=== PATIENT | male | born 1980 ===

== ENCOUNTER 2019-06-20 11:23 | Inpatient (IN) | payer OTHER ==
[~2019-06-20] VITALS: Ht 167.6 cm; Wt 70.1 kg
[2019-06-20] MEDS ORDERED: RISP.5 PO (11:36)
[2019-06-20 12:15] LABS: BASOPHILS % (AUTO) 0.7 % (0.0-2.0); HEMATOCRIT 35.1 % (41-53); HEMOGLOBIN 11.4 g/dL (13.5-17.5); LYMPHOCYTES # (AUTO) 1.6 K/uL (1.0-4.8); LYMPHOCYTES % (AUTO) 28.6 % (22.0-44.0); MEAN CORPUSCULAR HEMOGLOBIN 20.9 pg (26.0-34.0); MEAN CORPUSCULAR HGB CONC 32.6 G/dL (31.0-37.0); MEAN CORPUSCULAR VOLUME 64 fL (80-100); MONOCYTES # (AUTO) 0.4 K/uL (0.1-1.0); MONOCYTES % (AUTO) 7.3 % (2.0-9.0); NEUTROPHILS # (AUTO) 3.5 K/uL (1.8-7.7); NEUTROPHILS % (AUTO) 61.4 % (40.0-70.0); PLATELET COUNT (AUTO) 269 K/uL (150-450); RED BLOOD CELL COUNT(AUTO) 5.45 MIL/uL (4.50-5.90); RED CELL DISTRIBUTION WIDTH 15.6 % (11.5-14.5)
[2019-06-20 12:26] LABS: ANION GAP 6 mmol/L (8-16); CALCIUM, TOTAL 9.2 mg/dL (8.8-10.5); CARBON DIOXIDE 29 mmol/L (22-29); CHLORIDE 105 mmol/L (98-107); CREATININE 0.93 mg/dL (0.60-1.30); GLOMERULAR FILTR. RATE CALC > 60 mL/min (>60); GLUCOSE,RANDOM 116 mg/dL (70-110); POTASSIUM 4.1 mmol/L (3.5-5.1); SODIUM SERUM 140 mmol/L (136-145); UREA NITROGEN, BLOOD 14 mg/dL (7-18)
[2019-06-20 12:32] LABS: ALANINE AMINOTRANSFERASE 62 U/L (12-78); ALBUMIN 3.2 g/dL (3.4-5.0); ALKALINE PHOSPHATASE 74 U/L (46-116); ASPARTATE AMINOTRANSFERASE 48 U/L (15-37); BILIRUBIN,TOTAL 0.6 mg/dL (0.1-1.0)
[2019-06-20] MEDS ORDERED: CefTRIAXone 1 GM/DEXTROSE 50 ML IV ONE (13:00)
[2019-06-20] MEDS ORDERED: AZITHROMYCIN 500 MG/NS 250 ML IV ONE (13:00)
[2019-06-20 15:40] VITALS: BP 98/56
[2019-06-20] MEDS ORDERED: INFLUENZA VIRUS VACCINE QVS 2019-20 (3YR+)/PF 60 MCG/0.5 ML SYRINGE IM ONE (16:45)
[2019-06-20] MEDS ORDERED: PNEUMOCOCCAL VACCINE POLYVALENT 0.5 ML VIAL [PPSV23] IM ONE (16:45)
[2019-06-20] MEDS ORDERED: IOVERSOL 320 MG/ML 100 ML VIAL ONE (17:04)
[2019-06-20] MEDS ORDERED: SODIUM CHLORIDE 0.9% 100 ML ONE (17:04)
[2019-06-20 20:26] VITALS: BP 106/52
[2019-06-20] MEDS: RisperiDONE 2 MG TABLET PO SCH (20:29)
[2019-06-20] MEDS ORDERED: RisperiDONE 2 MG TABLET PO SCH (21:00)
[2019-06-21 04:38] VITALS: BP 108/53
[2019-06-21 08:06] LABS: HIV 1-2 SCREEN 4TH GEN W/RFLX Non Reactive (Non Reactive)
[2019-06-21 08:22] VITALS: BP 91/70
[2019-06-21 15:20] VITALS: BP 100/60
[2019-06-21 20:15] VITALS: BP 109/68
[2019-06-21] MEDS: RisperiDONE 2 MG TABLET PO SCH ×2 (20:24→21:00)
[2019-06-21] MEDS: ACETAMINOPHEN 325 MG TABLET PO PRN (20:24)
[2019-06-21] MEDS: MAGNESIUM HYDROXIDE SUSPENSION 30 ML UDCUP PO PRN (20:24)
[2019-06-22 04:41] VITALS: BP 108/54
[2019-06-22 07:20] VITALS: BP 112/78
[2019-06-22] MEDS: RisperiDONE 2 MG TABLET PO SCH ×3 (08:26→21:00)
[2019-06-22 15:10] VITALS: BP 119/79
[2019-06-22 20:45] VITALS: BP 131/74
[2019-06-22] MEDS: MAGNESIUM HYDROXIDE SUSPENSION 30 ML UDCUP PO PRN (20:47)
[2019-06-22] MEDS: ACETAMINOPHEN 325 MG TABLET PO PRN (20:47)
[2019-06-22 22:25] LABS: QUANTIFERON+,Mitogen Value >10.00 IU/mL; QUANTIFERON+,TB1 Antigen Value >10.00 IU/mL; QUANTIFERON, TB GOLD PLUS Positive (Negative)
[2019-06-23 07:58] VITALS: BP 109/68
[2019-06-23] MEDS: RisperiDONE 2 MG TABLET PO SCH ×2 (08:08→21:06)
[2019-06-23 15:51] VITALS: BP 133/86
[2019-06-23 21:02] VITALS: BP 115/79
[2019-06-24 05:22] VITALS: BP 118/66
[2019-06-24 07:30] VITALS: BP 90/54
[2019-06-24 09:38] LABS: BASOPHILS % (AUTO) 0.8 % (0.0-2.0); EOSINOPHILS % (AUTO) 3.7 % (1.0-6.0); HEMOGLOBIN 11.6 g/dL (13.5-17.5); LYMPHOCYTES % (AUTO) 34.8 % (22.0-44.0); MEAN CORPUSCULAR HEMOGLOBIN 20.4 pg (26.0-34.0); MEAN CORPUSCULAR HGB CONC 32.2 G/dL (31.0-37.0); MEAN CORPUSCULAR VOLUME 64 fL (80-100); MONOCYTES # (AUTO) 0.5 K/uL (0.1-1.0); MONOCYTES % (AUTO) 8.5 % (2.0-9.0); NEUTROPHILS # (AUTO) 3.1 K/uL (1.8-7.7); NEUTROPHILS % (AUTO) 52.2 % (40.0-70.0); PLATELET COUNT (AUTO) 281 K/uL (150-450); RED BLOOD CELL COUNT(AUTO) 5.67 MIL/uL (4.50-5.90); RED CELL DISTRIBUTION WIDTH 15.7 % (11.5-14.5)
[2019-06-24 09:46] LABS: ANION GAP 7 mmol/L (8-16); CALCIUM, TOTAL 9.1 mg/dL (8.8-10.5); CARBON DIOXIDE 27 mmol/L (22-29); CHLORIDE 104 mmol/L (98-107); CREATININE 0.94 mg/dL (0.60-1.30); GLOMERULAR FILTR. RATE CALC > 60 mL/min (>60); GLUCOSE,RANDOM 95 mg/dL (70-110); SODIUM SERUM 138 mmol/L (136-145); UREA NITROGEN, BLOOD 12 mg/dL (7-18)
[2019-06-24] MEDS: RisperiDONE 2 MG TABLET PO SCH ×2 (09:57→23:09)
[2019-06-24 15:53] VITALS: BP 124/68
[2019-06-24 18:29] LABS: PROTHROMBIN TIME 10.2 SEC (9.4-11.6)
[2019-06-24 20:07] VITALS: BP 112/74
[2019-06-25] VITALS (8 sets, daily range): BP systolic 96–121; BP diastolic 58–72
[2019-06-25 08:16] LABS: BASOPHILS % (AUTO) 0.5 % (0.0-2.0); EOSINOPHILS % (AUTO) 3.7 % (1.0-6.0); HEMATOCRIT 36.9 % (41-53); LYMPHOCYTES # (AUTO) 2.3 K/uL (1.0-4.8); LYMPHOCYTES % (AUTO) 39.5 % (22.0-44.0); MEAN CORPUSCULAR HEMOGLOBIN 20.6 pg (26.0-34.0); MEAN CORPUSCULAR HGB CONC 32.5 G/dL (31.0-37.0); MEAN CORPUSCULAR VOLUME 63 fL (80-100); MONOCYTES # (AUTO) 0.5 K/uL (0.1-1.0); MONOCYTES % (AUTO) 8.9 % (2.0-9.0); NEUTROPHILS # (AUTO) 2.7 K/uL (1.8-7.7); NEUTROPHILS % (AUTO) 47.4 % (40.0-70.0); PLATELET COUNT (AUTO) 283 K/uL (150-450); RED BLOOD CELL COUNT(AUTO) 5.82 MIL/uL (4.50-5.90); RED CELL DISTRIBUTION WIDTH 15.6 % (11.5-14.5)
[2019-06-25] MEDS ORDERED: FentaNYL CITRATE-PF 100 MCG/2 ML VIAL ONE (09:18)
[2019-06-25] MEDS ORDERED: NALOXONE HCL 0.4 MG/ML VIAL ONE (09:19)
[2019-06-25] MEDS ORDERED: MIDAZOLAM HCL 2 MG/2 ML VIAL ONE (09:19)
[2019-06-25] MEDS ORDERED: FLUMAZENIL 0.1 MG/ML 5 ML VIAL IVP ONE (09:19)
[2019-06-25] MEDS ORDERED: SODIUM CHLORIDE 0.9% 250 ML IV ONE (10:00)
[2019-06-25] MEDS ORDERED: MIDAZOLAM HCL 2 MG/2 ML VIAL IVP ONE (10:30)
[2019-06-25] MEDS ORDERED: FentaNYL CITRATE-PF 100 MCG/2 ML VIAL IVP ONE (10:32)
[2019-06-25] MEDS: RisperiDONE 2 MG TABLET PO SCH ×2 (15:35→22:24)
[2019-06-25] MEDS: ISONIAZID 300 MG TABLET PO SCH (15:36)
[2019-06-25] MEDS: PYRAZINAMIDE 500 MG TABLET PO SCH (15:36)
[2019-06-25] MEDS: RIFAMPIN 300 MG CAPSULE PO SCH (15:36)
[2019-06-25] MEDS: ETHAMBUTOL HCL 400 MG TABLET PO SCH (15:37)
[2019-06-25] MEDS: PYRIDOXINE HCL 50 MG TABLET PO SCH (15:46)
[2019-06-25] MEDS: ZOLPIDEM TARTRATE 5 MG TABLET PO PRN (22:24)
[2019-06-26 05:00] VITALS: BP 107/70
[2019-06-26 07:30] VITALS: BP 106/67
[2019-06-26 07:44] LABS: BASOPHILS % (AUTO) 0.9 % (0.0-2.0); HEMATOCRIT 35.2 % (41-53); HEMOGLOBIN 11.6 g/dL (13.5-17.5); LYMPHOCYTES # (AUTO) 2.3 K/uL (1.0-4.8); LYMPHOCYTES % (AUTO) 38.5 % (22.0-44.0); MEAN CORPUSCULAR HEMOGLOBIN 20.9 pg (26.0-34.0); MEAN CORPUSCULAR VOLUME 64 fL (80-100); MONOCYTES # (AUTO) 0.5 K/uL (0.1-1.0); MONOCYTES % (AUTO) 8.4 % (2.0-9.0); NEUTROPHILS # (AUTO) 2.9 K/uL (1.8-7.7); NEUTROPHILS % (AUTO) 48.2 % (40.0-70.0); PLATELET COUNT (AUTO) 293 K/uL (150-450); RED BLOOD CELL COUNT(AUTO) 5.55 MIL/uL (4.50-5.90)
[2019-06-26] MEDS: RisperiDONE 2 MG TABLET PO SCH ×2 (09:43→20:20)
[2019-06-26] MEDS: PYRIDOXINE HCL 50 MG TABLET PO SCH (09:43)
[2019-06-26] MEDS: PYRAZINAMIDE 500 MG TABLET PO SCH (09:43)
[2019-06-26] MEDS: ISONIAZID 300 MG TABLET PO SCH (09:44)
[2019-06-26] MEDS: RIFAMPIN 300 MG CAPSULE PO SCH (09:44)
[2019-06-26] MEDS: ETHAMBUTOL HCL 400 MG TABLET PO SCH (09:44)
[2019-06-26 14:12] LABS: U HISTOPLASMA GALACTOMANNAN AG <0.5 (<0.5 ng/mL)
[2019-06-26 15:11] VITALS: BP 102/63
[2019-06-26] MEDS: ZOLPIDEM TARTRATE 5 MG TABLET PO PRN (20:20)
[2019-06-26 20:32] VITALS: BP 123/75
[2019-06-27 05:01] VITALS: BP 99/68
[2019-06-27 08:41] VITALS: BP 128/74
[2019-06-27] MEDS: PYRIDOXINE HCL 50 MG TABLET PO SCH (09:12)
[2019-06-27] MEDS: ISONIAZID 300 MG TABLET PO SCH (09:12)
[2019-06-27] MEDS: RisperiDONE 2 MG TABLET PO SCH ×2 (09:13→21:19)
[2019-06-27] MEDS: RIFAMPIN 300 MG CAPSULE PO SCH (09:13)
[2019-06-27] MEDS: PYRAZINAMIDE 500 MG TABLET PO SCH (09:13)
[2019-06-27] MEDS: ETHAMBUTOL HCL 400 MG TABLET PO SCH (09:14)
[2019-06-27] MEDS: BusPIRone HCL 5 MG TABLET PO SCH ×2 (13:16→21:20)
[2019-06-27 16:41] VITALS: BP 141/71
[2019-06-27 19:15] VITALS: BP 154/85
[2019-06-27] MEDS ORDERED: ALBUTEROL SULFATE 2.5 MG/0.5 ML NEB SOLUTION NEB PRN (21:15)
[2019-06-27] MEDS ORDERED: IPRATROPIUM BROMIDE 0.5 MG/2.5 ML NEB SOLUTION NEB PRN (21:15)
[2019-06-27 21:45] LABS: ABG A-A DIFF O2 10.9 mmHg (10-20.0); ABG BASE EXCESS 3.1 mmol/L (-2.0-3.0); ABG CARBOXYHEMOGLOBIN 0.2 % (0.0-1.5); ABG HCO3 26.7 mmol/L (22.0-26.0); ABG METHEMOGLOBIN 0.2 % (0.0-1.5); ABG OXYGEN CONTENT 16.6 mL/dL (15.0-23.0); ABG OXYGEN SATURATION 95.7 % (95.0-98.0); ABG OXYHEMOGLOBIN 95.3 % (94.0-100.0); ABG PCO2 47 mmHg (35-45); ABG PH 7.395 (7.35-7.450); ABG TOTAL HEMOGLOBIN 12.3 G/dL (12.0-18.0); SOURCE, BLOOD GAS ARTERIAL; TEMPERATURE, FAHRENHEIT, BG 98.5 FAHREN (96.0-98.6)
[2019-06-27 21:47] LABS: SITE, BLOOD GAS RT BRACHIAL
[2019-06-28 05:15] VITALS: BP 103/56
[2019-06-28 07:18] VITALS: BP 111/56
[2019-06-28] MEDS ORDERED: INDOMETHACIN 50 MG CAPSULE PO ONE (07:45)
[2019-06-28 08:43] LABS: BASOPHILS % (AUTO) 0.9 % (0.0-2.0); EOSINOPHILS % (AUTO) 3.2 % (1.0-6.0); HEMATOCRIT 36.9 % (41-53); HEMOGLOBIN 12.1 g/dL (13.5-17.5); LYMPHOCYTES # (AUTO) 2.4 K/uL (1.0-4.8); LYMPHOCYTES % (AUTO) 42.5 % (22.0-44.0); MEAN CORPUSCULAR HEMOGLOBIN 20.6 pg (26.0-34.0); MEAN CORPUSCULAR HGB CONC 32.7 G/dL (31.0-37.0); MEAN CORPUSCULAR VOLUME 63 fL (80-100); MONOCYTES # (AUTO) 0.4 K/uL (0.1-1.0); NEUTROPHILS # (AUTO) 2.6 K/uL (1.8-7.7); NEUTROPHILS % (AUTO) 46.4 % (40.0-70.0); PLATELET COUNT (AUTO) 302 K/uL (150-450); RED BLOOD CELL COUNT(AUTO) 5.84 MIL/uL (4.50-5.90); RED CELL DISTRIBUTION WIDTH 16.1 % (11.5-14.5)
[2019-06-28] MEDS: BusPIRone HCL 5 MG TABLET PO SCH ×2 (08:51→20:05)
[2019-06-28] MEDS: ISONIAZID 300 MG TABLET PO SCH (08:51)
[2019-06-28] MEDS: RisperiDONE 2 MG TABLET PO SCH ×2 (08:51→20:05)
[2019-06-28] MEDS: PYRAZINAMIDE 500 MG TABLET PO SCH (08:51)
[2019-06-28] MEDS: RIFAMPIN 300 MG CAPSULE PO SCH (08:51)
[2019-06-28] MEDS: ETHAMBUTOL HCL 400 MG TABLET PO SCH (08:51)
[2019-06-28] MEDS: PYRIDOXINE HCL 50 MG TABLET PO SCH (08:51)
[2019-06-28] MEDS ORDERED: INDOMETHACIN 25 MG CAPSULE PO SCH (09:00)
[2019-06-28 16:53] VITALS: BP 126/71
[2019-06-28 20:38] VITALS: BP 124/68
[2019-06-28] MEDS: ZOLPIDEM TARTRATE 5 MG TABLET PO PRN (21:05)
[2019-06-28] MEDS ORDERED: LORazepam 2 MG/ML VIAL IM ONE (22:00)
[2019-06-28] MEDS ORDERED: DiphenhydrAMINE HCL 50 MG/ML VIAL IM ONE (22:00)
[2019-06-28] MEDS ORDERED: HALOPERIDOL LACTATE 5 MG/ML VIAL IM ONE (22:00)
[2019-06-28] MEDS ORDERED: DiphenhydrAMINE HCL 50 MG/ML VIAL ONE (22:08)
[2019-06-28] MEDS ORDERED: LORazepam 2 MG/ML VIAL ONE (22:08)
[2019-06-28] MEDS ORDERED: HALOPERIDOL LACTATE 5 MG/ML VIAL ONE (22:08)
[2019-06-29 04:30] VITALS: BP 120/66
[2019-06-29 08:04] VITALS: BP 117/77
[2019-06-29] MEDS: ISONIAZID 300 MG TABLET PO SCH (09:27)
[2019-06-29] MEDS: PYRAZINAMIDE 500 MG TABLET PO SCH (09:27)
[2019-06-29] MEDS: ETHAMBUTOL HCL 400 MG TABLET PO SCH (09:28)
[2019-06-29] MEDS: RIFAMPIN 300 MG CAPSULE PO SCH (09:28)
[2019-06-29] MEDS: RisperiDONE 2 MG TABLET PO SCH ×2 (09:28→20:02)
[2019-06-29] MEDS: BusPIRone HCL 5 MG TABLET PO SCH ×2 (09:28→20:02)
[2019-06-29] MEDS: PYRIDOXINE HCL 50 MG TABLET PO SCH (09:28)
[2019-06-29 15:24] VITALS: BP 107/58
[2019-06-29 19:56] VITALS: BP 121/71
[2019-06-30 05:13] VITALS: BP 93/53
[2019-06-30] MEDS: RIFAMPIN 300 MG CAPSULE PO SCH (08:15)
[2019-06-30] MEDS: PYRAZINAMIDE 500 MG TABLET PO SCH (08:15)
[2019-06-30] MEDS: RisperiDONE 2 MG TABLET PO SCH ×2 (08:16→20:12)
[2019-06-30] MEDS: BusPIRone HCL 5 MG TABLET PO SCH ×2 (08:16→20:12)
[2019-06-30] MEDS: ISONIAZID 300 MG TABLET PO SCH (08:16)
[2019-06-30] MEDS: ETHAMBUTOL HCL 400 MG TABLET PO SCH (08:16)
[2019-06-30] MEDS: PYRIDOXINE HCL 50 MG TABLET PO SCH (08:16)
[2019-06-30 08:48] VITALS: BP 111/73
[2019-06-30 16:00] VITALS: BP 118/71
[2019-06-30] MEDS: DICLOFENAC SODIUM 1% 100 GM GEL [2GM] TP SCH (20:12)
[2019-06-30] MEDS: ZOLPIDEM TARTRATE 5 MG TABLET PO PRN (20:16)
[2019-06-30 20:20] VITALS: BP 123/76
[2019-07-01 05:22] VITALS: BP 116/66
[2019-07-01] MEDS: ETHAMBUTOL HCL 400 MG TABLET PO SCH (08:22)
[2019-07-01] MEDS: ISONIAZID 300 MG TABLET PO SCH (08:22)
[2019-07-01] MEDS: RIFAMPIN 300 MG CAPSULE PO SCH (08:23)
[2019-07-01] MEDS: RisperiDONE 2 MG TABLET PO SCH ×2 (08:23→20:11)
[2019-07-01] MEDS: PYRAZINAMIDE 500 MG TABLET PO SCH (08:23)
[2019-07-01] MEDS: BusPIRone HCL 5 MG TABLET PO SCH ×2 (08:23→20:11)
[2019-07-01] MEDS: PYRIDOXINE HCL 50 MG TABLET PO SCH (08:26)
[2019-07-01] MEDS: DICLOFENAC SODIUM 1% 100 GM GEL [2GM] TP SCH ×5 (08:29→20:19)
[2019-07-01 08:45] VITALS: BP 131/71
[2019-07-01 16:08] VITALS: BP 103/69
[2019-07-01] MEDS: ZOLPIDEM TARTRATE 5 MG TABLET PO PRN (20:11)
[2019-07-01 20:35] VITALS: BP 117/64
[2019-07-02 04:58] VITALS: BP 107/61
[2019-07-02 07:58] LABS: BASOPHILS % (AUTO) 0.7 % (0.0-2.0); EOSINOPHILS % (AUTO) 3.2 % (1.0-6.0); HEMATOCRIT 36.5 % (41-53); HEMOGLOBIN 11.7 g/dL (13.5-17.5); LYMPHOCYTES # (AUTO) 2.3 K/uL (1.0-4.8); LYMPHOCYTES % (AUTO) 45.1 % (22.0-44.0); MEAN CORPUSCULAR HEMOGLOBIN 20.5 pg (26.0-34.0); MEAN CORPUSCULAR HGB CONC 32.1 G/dL (31.0-37.0); MEAN CORPUSCULAR VOLUME 64 fL (80-100); MONOCYTES # (AUTO) 0.4 K/uL (0.1-1.0); MONOCYTES % (AUTO) 7.5 % (2.0-9.0); NEUTROPHILS # (AUTO) 2.2 K/uL (1.8-7.7); NEUTROPHILS % (AUTO) 43.5 % (40.0-70.0); PLATELET COUNT (AUTO) 292 K/uL (150-450); RED BLOOD CELL COUNT(AUTO) 5.73 MIL/uL (4.50-5.90); RED CELL DISTRIBUTION WIDTH 15.6 % (11.5-14.5)
[2019-07-02 08:00] LABS: ALANINE AMINOTRANSFERASE 39 U/L (12-78); ALBUMIN 3.2 g/dL (3.4-5.0); ALKALINE PHOSPHATASE 81 U/L (46-116); ANION GAP 5 mmol/L (8-16); ASPARTATE AMINOTRANSFERASE 32 U/L (15-37); BILIRUBIN,TOTAL 0.4 mg/dL (0.1-1.0); CALCIUM, TOTAL 8.7 mg/dL (8.8-10.5); CARBON DIOXIDE 28 mmol/L (22-29); CHLORIDE 105 mmol/L (98-107); CREATININE 0.85 mg/dL (0.60-1.30); GLOMERULAR FILTR. RATE CALC > 60 mL/min (>60); GLUCOSE,RANDOM 91 mg/dL (70-110); POTASSIUM 3.9 mmol/L (3.5-5.1); SODIUM SERUM 138 mmol/L (136-145); TOTAL PROTEIN, SERUM 8.3 g/dL (6.4-8.2); UREA NITROGEN, BLOOD 13 mg/dL (7-18)
[2019-07-02] MEDS: PYRIDOXINE HCL 50 MG TABLET PO SCH (08:09)
[2019-07-02] MEDS: RIFAMPIN 300 MG CAPSULE PO SCH (08:09)
[2019-07-02] MEDS: ETHAMBUTOL HCL 400 MG TABLET PO SCH (08:09)
[2019-07-02] MEDS: RisperiDONE 2 MG TABLET PO SCH ×2 (08:09→21:31)
[2019-07-02] MEDS: PYRAZINAMIDE 500 MG TABLET PO SCH (08:09)
[2019-07-02] MEDS: BusPIRone HCL 5 MG TABLET PO SCH ×2 (08:10→21:30)
[2019-07-02] MEDS: ISONIAZID 300 MG TABLET PO SCH (08:10)
[2019-07-02 09:02] VITALS: BP 124/83
[2019-07-02] MEDS: DICLOFENAC SODIUM 1% 100 GM GEL [2GM] TP SCH ×3 (13:00→21:00)
[2019-07-02 15:37] VITALS: BP 119/82
[2019-07-02 20:51] VITALS: BP 106/65
[2019-07-02] MEDS: ZOLPIDEM TARTRATE 5 MG TABLET PO PRN (21:33)
[2019-07-03 04:45] VITALS: BP 114/60
[2019-07-03 08:17] VITALS: BP 112/68
[2019-07-03] MEDS: RIFAMPIN 300 MG CAPSULE PO SCH (08:44)
[2019-07-03] MEDS: ETHAMBUTOL HCL 400 MG TABLET PO SCH (08:45)
[2019-07-03] MEDS: ISONIAZID 300 MG TABLET PO SCH (08:45)
[2019-07-03] MEDS: PYRAZINAMIDE 500 MG TABLET PO SCH (08:45)
[2019-07-03] MEDS: RisperiDONE 2 MG TABLET PO SCH ×2 (08:45→21:10)
[2019-07-03] MEDS: BusPIRone HCL 5 MG TABLET PO SCH ×2 (08:45→21:10)
[2019-07-03] MEDS: PYRIDOXINE HCL 50 MG TABLET PO SCH (08:47)
[2019-07-03] MEDS: DICLOFENAC SODIUM 1% 100 GM GEL [2GM] TP SCH ×4 (08:50→21:10)
[2019-07-03 15:52] VITALS: BP 119/71
[2019-07-03 20:26] VITALS: BP 109/65
[2019-07-03] MEDS: ZOLPIDEM TARTRATE 5 MG TABLET PO PRN (21:18)
[2019-07-04 04:36] VITALS: BP 110/69
[2019-07-04 07:45] VITALS: BP 115/58
[2019-07-04] MEDS: PYRAZINAMIDE 500 MG TABLET PO SCH (08:33)
[2019-07-04] MEDS: BusPIRone HCL 5 MG TABLET PO SCH (08:33)
[2019-07-04] MEDS: ISONIAZID 300 MG TABLET PO SCH (08:33)
[2019-07-04] MEDS: RisperiDONE 2 MG TABLET PO SCH ×2 (08:33→21:49)
[2019-07-04] MEDS: PYRIDOXINE HCL 50 MG TABLET PO SCH (08:34)
[2019-07-04] MEDS: RIFAMPIN 300 MG CAPSULE PO SCH (08:34)
[2019-07-04] MEDS: ETHAMBUTOL HCL 400 MG TABLET PO SCH (08:34)
[2019-07-04] MEDS: DICLOFENAC SODIUM 1% 100 GM GEL [2GM] TP SCH ×4 (08:39→21:00)
[2019-07-04 15:27] VITALS: BP 111/72
[2019-07-04 19:00] VITALS: BP 108/60
[2019-07-04] MEDS: BusPIRone HCL 10 MG TABLET PO SCH (21:49)
[2019-07-04] MEDS: ZOLPIDEM TARTRATE 5 MG TABLET PO PRN (21:49)
[2019-07-05 04:16] VITALS: BP 116/63
[2019-07-05 07:30] VITALS: BP 119/60
[2019-07-05] MEDS: PYRIDOXINE HCL 50 MG TABLET PO SCH (08:39)
[2019-07-05] MEDS: RisperiDONE 2 MG TABLET PO SCH ×2 (08:39→21:00)
[2019-07-05] MEDS: ISONIAZID 300 MG TABLET PO SCH (08:40)
[2019-07-05] MEDS: PYRAZINAMIDE 500 MG TABLET PO SCH (08:40)
[2019-07-05] MEDS: RIFAMPIN 300 MG CAPSULE PO SCH (08:40)
[2019-07-05] MEDS: BusPIRone HCL 10 MG TABLET PO SCH ×2 (08:40→22:42)
[2019-07-05] MEDS: DICLOFENAC SODIUM 1% 100 GM GEL [2GM] TP SCH ×4 (08:41→21:00)
[2019-07-05] MEDS: ETHAMBUTOL HCL 400 MG TABLET PO SCH (08:41)
[2019-07-05 15:10] VITALS: BP 124/84
[2019-07-05 19:55] VITALS: BP 116/67
[2019-07-05] MEDS: ZOLPIDEM TARTRATE 5 MG TABLET PO PRN (22:42)
[2019-07-06 04:46] VITALS: BP 98/56
[2019-07-06] MEDS: ISONIAZID 300 MG TABLET PO SCH (08:24)
[2019-07-06] MEDS: BusPIRone HCL 10 MG TABLET PO SCH ×3 (08:24→20:21)
[2019-07-06] MEDS: PYRIDOXINE HCL 50 MG TABLET PO SCH (08:24)
[2019-07-06 08:25] VITALS: BP 117/72
[2019-07-06] MEDS: PYRAZINAMIDE 500 MG TABLET PO SCH (08:25)
[2019-07-06] MEDS: ETHAMBUTOL HCL 400 MG TABLET PO SCH (08:25)
[2019-07-06] MEDS: DICLOFENAC SODIUM 1% 100 GM GEL [2GM] TP SCH ×5 (08:25→20:21)
[2019-07-06] MEDS: RisperiDONE 2 MG TABLET PO SCH ×2 (08:25→20:15)
[2019-07-06] MEDS: RIFAMPIN 300 MG CAPSULE PO SCH (08:25)
[2019-07-06 16:37] VITALS: BP 116/65
[2019-07-06] MEDS: ZOLPIDEM TARTRATE 5 MG TABLET PO PRN (20:19)
[2019-07-06 20:26] VITALS: BP 119/73
[2019-07-07 04:46] VITALS: BP 94/58
[2019-07-07 07:13] LABS: BASOPHILS % (AUTO) 1.3 % (0.0-2.0); EOSINOPHILS % (AUTO) 4.6 % (1.0-6.0); HEMATOCRIT 37.5 % (41-53); LYMPHOCYTES # (AUTO) 2.5 K/uL (1.0-4.8); MEAN CORPUSCULAR HEMOGLOBIN 20.6 pg (26.0-34.0); MEAN CORPUSCULAR HGB CONC 32.1 G/dL (31.0-37.0); MEAN CORPUSCULAR VOLUME 64 fL (80-100); MONOCYTES # (AUTO) 0.4 K/uL (0.1-1.0); MONOCYTES % (AUTO) 6.9 % (2.0-9.0); NEUTROPHILS # (AUTO) 2.3 K/uL (1.8-7.7); NEUTROPHILS % (AUTO) 41.2 % (40.0-70.0); PLATELET COUNT (AUTO) 283 K/uL (150-450); RED BLOOD CELL COUNT(AUTO) 5.83 MIL/uL (4.50-5.90); RED CELL DISTRIBUTION WIDTH 16.4 % (11.5-14.5)
[2019-07-07 07:24] LABS: ANION GAP 6 mmol/L (8-16); CALCIUM, TOTAL 8.6 mg/dL (8.8-10.5); CARBON DIOXIDE 28 mmol/L (22-29); CHLORIDE 106 mmol/L (98-107); CREATININE 0.76 mg/dL (0.60-1.30); GLOMERULAR FILTR. RATE CALC > 60 mL/min (>60); GLUCOSE,RANDOM 91 mg/dL (70-110); SODIUM SERUM 140 mmol/L (136-145); UREA NITROGEN, BLOOD 14 mg/dL (7-18)
[2019-07-07 07:49] VITALS: BP 110/59
[2019-07-07] MEDS: DICLOFENAC SODIUM 1% 100 GM GEL [2GM] TP SCH ×6 (09:00→20:48)
[2019-07-07] MEDS: PYRAZINAMIDE 500 MG TABLET PO SCH (09:08)
[2019-07-07] MEDS: RisperiDONE 2 MG TABLET PO SCH ×2 (09:08→20:43)
[2019-07-07] MEDS: ETHAMBUTOL HCL 400 MG TABLET PO SCH (09:09)
[2019-07-07] MEDS: RIFAMPIN 300 MG CAPSULE PO SCH (09:09)
[2019-07-07] MEDS: BusPIRone HCL 10 MG TABLET PO SCH ×3 (09:09→20:47)
[2019-07-07] MEDS: PYRIDOXINE HCL 50 MG TABLET PO SCH (09:09)
[2019-07-07] MEDS: ISONIAZID 300 MG TABLET PO SCH (09:10)
[2019-07-07 16:04] VITALS: BP 131/83
[2019-07-07 19:35] VITALS: BP 106/61
[2019-07-07] MEDS: ZOLPIDEM TARTRATE 5 MG TABLET PO PRN (21:17)
[2019-07-08 04:50] VITALS: BP 113/61
[2019-07-08 08:27] VITALS: BP 110/67
[2019-07-08] MEDS: BusPIRone HCL 10 MG TABLET PO SCH ×3 (08:33→20:08)
[2019-07-08] MEDS: PYRAZINAMIDE 500 MG TABLET PO SCH (08:33)
[2019-07-08] MEDS: ETHAMBUTOL HCL 400 MG TABLET PO SCH (08:33)
[2019-07-08] MEDS: PYRIDOXINE HCL 50 MG TABLET PO SCH (08:33)
[2019-07-08] MEDS: RisperiDONE 2 MG TABLET PO SCH ×2 (08:33→20:05)
[2019-07-08] MEDS: RIFAMPIN 300 MG CAPSULE PO SCH (08:33)
[2019-07-08] MEDS: DICLOFENAC SODIUM 1% 100 GM GEL [2GM] TP SCH ×5 (08:34→20:08)
[2019-07-08] MEDS: ISONIAZID 300 MG TABLET PO SCH (08:34)
[2019-07-08] MEDS ORDERED: MAGNESIUM SULFATE 2 GM/WATER 50 ML IV ONE (10:00)
[2019-07-08] MEDS ORDERED: SODIUM CHLORIDE 0.9% 500 ML IV ONE (10:38)
[2019-07-08 17:00] VITALS: BP 134/71
[2019-07-08 20:04] VITALS: BP 109/68
[2019-07-08] MEDS: ZOLPIDEM TARTRATE 5 MG TABLET PO PRN (20:11)
[2019-07-09 05:00] VITALS: BP 93/58
[2019-07-09 08:06] VITALS: BP 109/65
[2019-07-09] MEDS: DICLOFENAC SODIUM 1% 100 GM GEL [2GM] TP SCH ×4 (08:32→20:26)
[2019-07-09] MEDS: BusPIRone HCL 10 MG TABLET PO SCH ×4 (08:35→20:26)
[2019-07-09] MEDS: PYRAZINAMIDE 500 MG TABLET PO SCH (08:36)
[2019-07-09] MEDS: RIFAMPIN 300 MG CAPSULE PO SCH (08:36)
[2019-07-09] MEDS: ISONIAZID 300 MG TABLET PO SCH (08:36)
[2019-07-09] MEDS: RisperiDONE 2 MG TABLET PO SCH ×2 (08:36→20:23)
[2019-07-09] MEDS: ETHAMBUTOL HCL 400 MG TABLET PO SCH (08:36)
[2019-07-09] MEDS: PYRIDOXINE HCL 50 MG TABLET PO SCH (08:37)
[2019-07-09 09:32] LABS: ALANINE AMINOTRANSFERASE 47 U/L (12-78); ALBUMIN 3.5 g/dL (3.4-5.0); ALKALINE PHOSPHATASE 92 U/L (46-116); ANION GAP 6 mmol/L (8-16); ASPARTATE AMINOTRANSFERASE 31 U/L (15-37); BILIRUBIN,TOTAL 0.4 mg/dL (0.1-1.0); CALCIUM, TOTAL 8.9 mg/dL (8.8-10.5); CARBON DIOXIDE 30 mmol/L (22-29); CHLORIDE 103 mmol/L (98-107); CREATININE 0.75 mg/dL (0.60-1.30); GLOMERULAR FILTR. RATE CALC > 60 mL/min (>60); GLUCOSE,RANDOM 132 mg/dL (70-110); POTASSIUM 4.1 mmol/L (3.5-5.1); SODIUM SERUM 139 mmol/L (136-145); TOTAL PROTEIN, SERUM 8.5 g/dL (6.4-8.2); UREA NITROGEN, BLOOD 13 mg/dL (7-18)
[2019-07-09] MEDS ORDERED: MAGNESIUM SULFATE 2 GM/WATER 50 ML IV PRN (12:15)
[2019-07-09] MEDS ORDERED: MAGNESIUM SULFATE 4 GM/WATER 100 ML IV PRN (12:15)
[2019-07-09] MEDS: MAGNESIUM OXIDE 400 MG TABLET PO PRN ×2 (15:13→22:56)
[2019-07-09 16:19] VITALS: BP 110/74
[2019-07-09 20:00] VITALS: BP 111/67
[2019-07-09] MEDS: ZOLPIDEM TARTRATE 5 MG TABLET PO PRN (22:57)
[2019-07-10 04:40] VITALS: BP 94/58
[2019-07-10 07:42] VITALS: BP 111/64
[2019-07-10] MEDS: PYRIDOXINE HCL 50 MG TABLET PO SCH (08:25)
[2019-07-10] MEDS: PYRAZINAMIDE 500 MG TABLET PO SCH (08:25)
[2019-07-10] MEDS: MAGNESIUM OXIDE 400 MG TABLET PO PRN (08:25)
[2019-07-10] MEDS: RisperiDONE 2 MG TABLET PO SCH ×2 (08:25→20:47)
[2019-07-10] MEDS: RIFAMPIN 300 MG CAPSULE PO SCH (08:25)
[2019-07-10] MEDS: ETHAMBUTOL HCL 400 MG TABLET PO SCH (08:25)
[2019-07-10] MEDS: ISONIAZID 300 MG TABLET PO SCH (08:25)
[2019-07-10] MEDS: BusPIRone HCL 10 MG TABLET PO SCH ×2 (08:29→21:00)
[2019-07-10] MEDS: DICLOFENAC SODIUM 1% 100 GM GEL [2GM] TP SCH (08:30)
[2019-07-10 15:47] VITALS: BP 112/69
[2019-07-10 20:26] VITALS: BP 123/71
[2019-07-10] MEDS: ZOLPIDEM TARTRATE 5 MG TABLET PO PRN (20:48)
[2019-07-11 05:00] VITALS: BP 115/74
[2019-07-11] MEDS: PYRIDOXINE HCL 50 MG TABLET PO SCH (08:18)
[2019-07-11] MEDS: RIFAMPIN 300 MG CAPSULE PO SCH (08:18)
[2019-07-11] MEDS: ISONIAZID 300 MG TABLET PO SCH (08:18)
[2019-07-11] MEDS: RisperiDONE 2 MG TABLET PO SCH ×2 (08:18→21:44)
[2019-07-11] MEDS: PYRAZINAMIDE 500 MG TABLET PO SCH (08:19)
[2019-07-11] MEDS: ETHAMBUTOL HCL 400 MG TABLET PO SCH (08:19)
[2019-07-11] MEDS: BusPIRone HCL 10 MG TABLET PO SCH ×2 (08:19→21:44)
[2019-07-11 09:09] VITALS: BP 124/76
[2019-07-11] MEDS ORDERED: SODIUM CHLORIDE 3% 15 ML NEB SOLUTION NEB ONE (13:52)
[2019-07-11 16:18] VITALS: BP 138/71
[2019-07-11 20:04] VITALS: BP 127/75
[2019-07-11] MEDS: ZOLPIDEM TARTRATE 5 MG TABLET PO PRN (21:49)
[2019-07-12 05:49] VITALS: BP 105/54
[2019-07-12 07:26] VITALS: BP 107/62
[2019-07-12 07:40] VITALS: BP 95/56
[2019-07-12] MEDS: PYRIDOXINE HCL 50 MG TABLET PO SCH (08:28)
[2019-07-12] MEDS: RIFAMPIN 300 MG CAPSULE PO SCH (08:28)
[2019-07-12] MEDS: PYRAZINAMIDE 500 MG TABLET PO SCH (08:28)
[2019-07-12] MEDS: ISONIAZID 300 MG TABLET PO SCH (08:28)
[2019-07-12] MEDS: ETHAMBUTOL HCL 400 MG TABLET PO SCH (08:29)
[2019-07-12] MEDS: RisperiDONE 2 MG TABLET PO SCH ×2 (08:29→20:14)
[2019-07-12] MEDS: BusPIRone HCL 10 MG TABLET PO SCH ×2 (08:32→20:17)
[2019-07-12] MEDS ORDERED: SODIUM CHLORIDE 3% 15 ML NEB SOLUTION NEB ONE (13:21)
[2019-07-12 15:35] VITALS: BP 116/72
[2019-07-12] MEDS: ZOLPIDEM TARTRATE 5 MG TABLET PO PRN (20:14)
[2019-07-12 20:32] VITALS: BP 104/64
[2019-07-12] MEDS ORDERED: ASCORBIC ACID 500 MG TABLET PO SCH (21:00)
[2019-07-13 04:00] VITALS: BP 122/68
[2019-07-13 07:42] VITALS: BP 123/85
[2019-07-13] MEDS ORDERED: MULTIVITAMINS WITH MINERALS, THERAPEUTIC TABLET PO SCH (09:00)
[2019-07-13] MEDS: ETHAMBUTOL HCL 400 MG TABLET PO SCH (09:24)
[2019-07-13] MEDS: BusPIRone HCL 10 MG TABLET PO SCH ×2 (09:24→20:15)
[2019-07-13] MEDS: RIFAMPIN 300 MG CAPSULE PO SCH (09:24)
[2019-07-13] MEDS: RisperiDONE 2 MG TABLET PO SCH ×2 (09:25→20:09)
[2019-07-13] MEDS: PYRIDOXINE HCL 50 MG TABLET PO SCH (09:25)
[2019-07-13] MEDS: ISONIAZID 300 MG TABLET PO SCH (09:25)
[2019-07-13] MEDS: PYRAZINAMIDE 500 MG TABLET PO SCH (09:25)
[2019-07-13] MEDS: ZOLPIDEM TARTRATE 5 MG TABLET PO PRN (20:13)
[2019-07-13 23:33] VITALS: BP 116/66
[2019-07-14 05:20] VITALS: BP 110/64
[2019-07-14 08:01] VITALS: BP 122/72
[2019-07-14] MEDS: PYRAZINAMIDE 500 MG TABLET PO SCH (08:16)
[2019-07-14] MEDS: ETHAMBUTOL HCL 400 MG TABLET PO SCH (08:16)
[2019-07-14] MEDS: RisperiDONE 2 MG TABLET PO SCH ×2 (08:16→20:18)
[2019-07-14] MEDS: RIFAMPIN 300 MG CAPSULE PO SCH (08:16)
[2019-07-14] MEDS: PYRIDOXINE HCL 50 MG TABLET PO SCH (08:16)
[2019-07-14] MEDS: ISONIAZID 300 MG TABLET PO SCH (08:16)
[2019-07-14] MEDS: BusPIRone HCL 10 MG TABLET PO SCH ×3 (08:16→21:00)
[2019-07-14 15:56] VITALS: BP 120/71
[2019-07-14 19:44] VITALS: BP 118/70
[2019-07-14] MEDS: ZOLPIDEM TARTRATE 5 MG TABLET PO PRN (20:22)
[2019-07-15 05:50] VITALS: BP 124/64
[2019-07-15] MEDS: RisperiDONE 2 MG TABLET PO SCH ×2 (08:11→21:06)
[2019-07-15] MEDS: RIFAMPIN 300 MG CAPSULE PO SCH (08:11)
[2019-07-15] MEDS: BusPIRone HCL 10 MG TABLET PO SCH ×2 (08:11→21:00)
[2019-07-15] MEDS: ISONIAZID 300 MG TABLET PO SCH (08:11)
[2019-07-15] MEDS: PYRIDOXINE HCL 50 MG TABLET PO SCH (08:11)
[2019-07-15] MEDS: PYRAZINAMIDE 500 MG TABLET PO SCH (08:11)
[2019-07-15] MEDS: ETHAMBUTOL HCL 400 MG TABLET PO SCH (08:11)
[2019-07-15 08:39] VITALS: BP 116/67
[2019-07-15 15:20] VITALS: BP 115/63
[2019-07-15 20:17] VITALS: BP 111/66
[2019-07-15] MEDS: ZOLPIDEM TARTRATE 5 MG TABLET PO PRN (21:06)
[2019-07-16 05:21] VITALS: BP 100/55
[2019-07-16 08:00] VITALS: BP 148/77
[2019-07-16] MEDS: ETHAMBUTOL HCL 400 MG TABLET PO SCH (08:15)
[2019-07-16] MEDS: BusPIRone HCL 10 MG TABLET PO SCH (08:15)
[2019-07-16] MEDS: RisperiDONE 2 MG TABLET PO SCH ×2 (08:15→20:44)
[2019-07-16] MEDS: PYRIDOXINE HCL 50 MG TABLET PO SCH (08:15)
[2019-07-16] MEDS: ISONIAZID 300 MG TABLET PO SCH (08:15)
[2019-07-16] MEDS: RIFAMPIN 300 MG CAPSULE PO SCH (08:15)
[2019-07-16] MEDS: PYRAZINAMIDE 500 MG TABLET PO SCH (08:15)
[2019-07-16 15:10] VITALS: BP 122/73
[2019-07-16] MEDS ORDERED: BACTDSB PO (17:30)
[2019-07-16] MEDS ORDERED: CEPH-582 PO (17:30)
[2019-07-16] MEDS ORDERED: VENL-67 PO (17:32)
[2019-07-16] MEDS ORDERED: CHLO100T24 PO (17:33)
[2019-07-16] MEDS ORDERED: MIRT30 PO (17:33)
[2019-07-16] MEDS ORDERED: OLAN7.5T2 PO (17:34)
[2019-07-16 20:00] VITALS: BP 132/82
[2019-07-16] MEDS: ZOLPIDEM TARTRATE 5 MG TABLET PO PRN (20:44)
[2019-07-17] MEDS ORDERED: ETHAMBUTOL HCL 400 MG TABLET PO SCH
[2019-07-17] MEDS ORDERED: PYRAZINAMIDE 500 MG TABLET PO SCH
[2019-07-17] MEDS ORDERED: ISONIAZID 300 MG TABLET PO SCH
[2019-07-17] MEDS ORDERED: BusPIRone HCL 10 MG TABLET PO SCH
[2019-07-17] MEDS ORDERED: RisperiDONE 2 MG TABLET PO SCH
[2019-07-17] MEDS ORDERED: RIFAMPIN 300 MG CAPSULE PO SCH
[2019-07-17] MEDS ORDERED: PYRIDOXINE HCL 50 MG TABLET PO SCH
[2019-07-17 05:30] VITALS: BP 108/66
[2019-07-17 07:03] LABS: EOSINOPHILS % (AUTO) 4.7 % (1.0-6.0); HEMATOCRIT 37.6 % (41-53); LYMPHOCYTES # (AUTO) 2.1 K/uL (1.0-4.8); LYMPHOCYTES % (AUTO) 46.2 % (22.0-44.0); MEAN CORPUSCULAR HEMOGLOBIN 20.6 pg (26.0-34.0); MEAN CORPUSCULAR VOLUME 64 fL (80-100); MONOCYTES # (AUTO) 0.4 K/uL (0.1-1.0); MONOCYTES % (AUTO) 8.7 % (2.0-9.0); NEUTROPHILS # (AUTO) 1.8 K/uL (1.8-7.7); NEUTROPHILS % (AUTO) 39.4 % (40.0-70.0); PLATELET COUNT (AUTO) 202 K/uL (150-450); RED BLOOD CELL COUNT(AUTO) 5.85 MIL/uL (4.50-5.90); RED CELL DISTRIBUTION WIDTH 16.8 % (11.5-14.5)
[2019-07-17 07:21] LABS: ALANINE AMINOTRANSFERASE 50 U/L (12-78); ALBUMIN 3.1 g/dL (3.4-5.0); ALKALINE PHOSPHATASE 91 U/L (46-116); ANION GAP 5 mmol/L (8-16); ASPARTATE AMINOTRANSFERASE 29 U/L (15-37); BILIRUBIN,TOTAL 0.2 mg/dL (0.1-1.0); CARBON DIOXIDE 30 mmol/L (22-29); CHLORIDE 105 mmol/L (98-107); CREATININE 0.83 mg/dL (0.60-1.30); GLOMERULAR FILTR. RATE CALC > 60 mL/min (>60); GLUCOSE,RANDOM 93 mg/dL (70-110); POTASSIUM 4.1 mmol/L (3.5-5.1); SODIUM SERUM 140 mmol/L (136-145); UREA NITROGEN, BLOOD 14 mg/dL (7-18)
[2019-07-17 08:39] VITALS: BP 106/54
[2019-07-17] MEDS: PYRAZINAMIDE 500 MG TABLET PO SCH (08:47)
[2019-07-17] MEDS: ETHAMBUTOL HCL 400 MG TABLET PO SCH (08:47)
[2019-07-17] MEDS: ISONIAZID 300 MG TABLET PO SCH (08:47)
[2019-07-17] MEDS: PYRIDOXINE HCL 50 MG TABLET PO SCH (08:47)
[2019-07-17] MEDS: RIFAMPIN 300 MG CAPSULE PO SCH (08:47)
[2019-07-17] MEDS: RisperiDONE 2 MG TABLET PO SCH ×2 (08:48→20:46)
[2019-07-17] MEDS: BusPIRone HCL 10 MG TABLET PO SCH ×2 (08:49→21:00)
[2019-07-17] MEDS ORDERED: PYRI25TA4 PO (10:40)
[2019-07-17] MEDS ORDERED: ISON100L PO (10:49)
[2019-07-17] MEDS ORDERED: ETHA100 PO (10:49)
[2019-07-17] MEDS ORDERED: PYRA500 PO (10:50)
[2019-07-17] MEDS ORDERED: RIFA300 PO (10:50)
[2019-07-17] MEDS ORDERED: BUSP10TA23 PO (10:52)
[2019-07-17] MEDS ORDERED: RISP2TAB76 PO (10:54)
[2019-07-17] MEDS ORDERED: ISON300 PO (10:59)
[2019-07-17 17:43] VITALS: BP 116/78
[2019-07-17 20:01] VITALS: BP 118/75
[2019-07-17] MEDS: ZOLPIDEM TARTRATE 5 MG TABLET PO PRN (20:46)
[2019-07-18 04:29] VITALS: BP 101/64
[2019-07-18 08:15] VITALS: BP 120/71
[2019-07-18] MEDS: RisperiDONE 2 MG TABLET PO SCH (08:21)
[2019-07-18] MEDS: RIFAMPIN 300 MG CAPSULE PO SCH (08:21)
[2019-07-18] MEDS: ISONIAZID 300 MG TABLET PO SCH (08:21)
[2019-07-18] MEDS: ETHAMBUTOL HCL 400 MG TABLET PO SCH (08:22)
[2019-07-18] MEDS: PYRIDOXINE HCL 50 MG TABLET PO SCH (08:28)
[2019-07-18] MEDS: PYRAZINAMIDE 500 MG TABLET PO SCH (08:28)
[2019-07-18] MEDS: BusPIRone HCL 10 MG TABLET PO SCH (08:28)
== END 2019-07-18 10:08 | DRG 178 ==
LOC: EMS 11:29 → 6S 12:33
PROVIDERS: ADMIT Internal Medicine; ATTEND Internal Medicine
PROC: 0BBG3ZX Excision of Left Upper Lung Lobe, Percutaneous Approach, Diagnostic (ICD-10-PCS; principal; 2019-06-25)
DX: A15.0 Tuberculosis of lung (principal); F20.0 Paranoid schizophrenia; B19.20 Unspecified viral hepatitis C without hepatic coma; J43.2 Centrilobular emphysema; F11.90 Opioid use, unspecified, uncomplicated; F41.9 Anxiety disorder, unspecified; F17.200 Nicotine dependence, unspecified, uncomplicated; Z02.89 Encounter for other administrative examinations; Z72.89 Other problems related to lifestyle; Z83.3 Family history of diabetes mellitus
CPT/HCPCS: 32405; 36600; 71250; 71260; 82805; 83735; 86171; 86403; 86480; 87015; 87040; 87070; 87101; 87149; 87176; 87188; 87205; 87206; 87385; 87389; 87556; 87798; 88173; 88312; 90686; 90732; 93005; 94640; J0456; J0696; J1200; J1630; J2060; J2250; J2310; J3010; J3475; J3490; J7040; J7050